=== PATIENT | female | born 1990 | race Caucasian/White ===

== ENCOUNTER 2019-03-25 15:48 | Inpatient (IN) | payer OTHER ==
[2019-03-25 16:27] LABS: Hemoglobin 12.4 g/dL (12.0-16.0); Mean Corpuscular HGB CONC 33.6 g/dL (32.0-36.0); Mean Corpuscular Volume 92.3 fL (78.0-98.0); Mean Platelet Volume 6.9 fL (7.4-10.4); Platelet Count 165 thou/uL (130-400); RBC Distribution Width 12.4 % (11.5-14.5); Red Blood Cell (RBC) Count 3.99 mill/uL (4.20-5.40); White Blood Cell (WBC) Count 12.3 thou/uL (4.8-10.8)
[2019-03-25 16:45] LABS: Bilirubin Negative (Negative); Blood, Urine Moderate (Negative); Clarity CLOUDY (Clear); Glucose, Urine (Dipstick) Negative (Negative); Leukocyte Moderate (Negative); Nitrite Negative (Negative); Protein, Urine (Dipstick) Negative (Neg-Trace); Specific Gravity, Urine 1.019 (1.002-1.036); Urobilinogen 0.2 mg/dL (0.2-1.0)
[2019-03-25 16:51] LABS: Bacteria/HPF Rare-Few HPF (None Seen); Hyaline Casts/LPF 0-3 HYALINE CAST LPF (0-3 Hyaline); Pathc Cast-AUWi Flag 0.54 (0-2.49)
[2019-03-25 16:54] LABS: ALT (SGPT) 15 U/L (8-55); AST (SGOT) 21 U/L (5-34); Albumin 3.8 g/dL (3.5-5.0); Alkaline Phosphatase 79 U/L (40-150); Anion Gap 15 mmol/L (10-20); BUN (Urea Nitrogen) 10 mg/dL (7.0-18.7); Bilirubin, Total 0.3 mg/dL (0.2-1.2); Calc. Creatinine Clearance 0 mL/min (70-130); Carbon Dioxide 20 mmol/L (22-29); Chloride 107 mmol/L (98-107); Estimated GFR-MDRD Greater than 90; Globulin 2.4 g/dL (2.4-3.5); Glucose 89 mg/dL (70-105); Potassium 3.9 mmol/L (3.5-5.1); Protein, Total 6.2 g/dL (6.0-8.3); Sodium 138 mmol/L (136-145)
[2019-03-25 16:55] LABS: Band 20 % (5-11); Eosinophils 1 % (0-10); Lymphocytes 14 % (21-51); MDiff Complete? YES; Monocytes 4 % (0-10); Neutrophil 61 % (42-75); Platelet Morphology Comment Appears Adequate; Polychromasia SLIGHT = 2-3 cells (100X) (0-2/hpf)
[2019-03-25] MEDS ORDERED: Morphine 4 MG/ML VIAL ONE (17:07)
--- NOTE | 2019-03-25 17:23 | CT ---
CT ABDOMEN AND PELVIS WITH CONTRAST: 03/25/19 HISTORY: Pain. Lung bases are clear. No pericardial effusion. The spleen is mildly enlarged. The liver, gallbladder and pancreas are unremarkable. No hydronephrosis. The aortic contour is nonaneurysmal. No retroperitoneal adenopathy. 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 Multiple cysts left ovary. No acute osseous abnormality. IMPRESSION: 1. 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 This may reflect endometritis and retained products of conception given the history. 2. Normal appendix. 3. Mild splenomegaly. POS: HOME
[2019-03-25] MEDS ORDERED: Clindamycin/D5W 900 mg/50 ml Premix Bag ONE ×2 (17:36→17:37)
[2019-03-25] MEDS ORDERED: Gentamicin Sulfate 360 MG in Sodium Chloride 0.9% 100 ML IVPB SCH (18:00)
[2019-03-25] MEDS ORDERED: Ketorolac Tromethamine 30 MG/ML VIAL ONE (18:41)
--- NOTE | 2019-03-25 20:14 | ULT ---
Ultrasound pelvis Doppler duplex: 03/25/2019 at 7:41 PM HISTORY: 28-year-old female status post spontaneous . Rule out retained products of conception. TECHNIQUE: Transabdominal transducer used to evaluate intrapelvic contents with grayscale, color-flow, and spect ral analysis. Endovaginal transducer was not used. FINDINGS: Uterus: 11.5 x 5.5 x 5.5 cm. Within the uterine fundus, the endometrial cavity is mildly expanded and filled with material of mixe d echogenicity. Some of this is hyperechoic and shadows, corresponding to the small air bubbles demonstrated on the recent CT. Some of the material is fluid, perhaps a small amount of blood. There is hyperemia in the uterine myometrium around this. It is uncertain whether there is blood flow in some of the material within the endometrial cavity. If so, this would be consistent with retained pro ducts of conception. There is a 3.5 x 2.5 x 3 cm left ovarian cyst superficially located near the left inguinal canal. Right ovary is 3.7 x 2.1 x 3.2 cm. No free fluid in the cul-de-sac. IMPRESSION: Cannot rule out retained products of conception.
[2019-03-25] MEDS ORDERED: Ondansetron ODT 4 MG TAB PO PRN (21:31)
[2019-03-25] MEDS ORDERED: Ondansetron PF 4 MG/2 ML Vial IVP PRN (21:31)
[2019-03-25] MEDS ORDERED: Fluconazole 100 MG TAB PO SCH (22:00)
[2019-03-25] MEDS: metroNIDAZOLE 500 MG in Premix Bag 1 BAG IVPB SCH (22:38)
[2019-03-25] MEDS: Acetaminophen 325 MG TAB PO PRN (22:47)
[2019-03-25] MEDS ORDERED: Zolpidem Tartrate 5 MG TAB PO PRN (23:00)
--- NOTE | 2019-03-25 23:25 | HP ---
HISTORY OF PRESENT ILLNESS: The patient is a 28-year-old G4, P1 female who was recently diagnosed with a missed AB a couple of weeks ago and over the course last couple of weeks has been treated with medical management and received one dose of 600 mcg of Cytotec followed by heavy bleeding and pain, presented to the ER and was reported to have an incomplete AB and took another portion of her Cytotec at home with subsequent diminishing bleeding. The patient has presented today to the emergency room with once again having heavy vaginal bleeding. She reports that she had some subjective fevers at home, but when she checked it, did not have a fever by thermometer. She reports that she has been having abdominal crampy pain that began this morning and reports that a co-worker at work noticed that she felt like she was "on fire" by touch. The patient has had some vomiting and lightheadedness. She has had some diarrhea today and yesterday. The patient has been treated by primary OB, Dr. Krishna. Her workup downstairs in the emergency room revealed by CT a didelphys uterus with abnormal collection of gas, enhancing material within the left endometrial cavity. Pelvic ultrasound confirms these findings. The patient was placed on gentamicin and clindamycin and brought up to the floor for treatment. Upon my evaluation, the patient reports that her bleeding and pain had slowed down significantly. She denies any current headache, chest pain, or shortness of breath. She has had really no appetite today with some nausea and vomiting previous and diarrhea. Denies constipation. Denies any skin rashes. The patient reports that today she woke up with a lot of lower extremity body aches in her hips and legs. She denies any urinary urgency or frequency. PAST MEDICAL HISTORY: Significant for bipolar disorder. PAST SURGICAL HISTORY: She has had 1 prior . She has also had a diagnostic laparoscopy. SOCIAL HISTORY: The patient smokes and smoking about a half pack per day. She also drinks socially. Denies any drug use. ALLERGIES: INCLUDE LATEX AND PENICILLIN. MEDICATIONS: The patient has received a dose of gentamicin 5 mg/kg, Cleocin 900 mg, 4 mg of morphine, 1 L of saline downstairs in the emergency room. PHYSICAL EXAMINATION: VITAL SIGNS: Blood pressure 107/65, heart rate of 74, respiratory rate 16, temperature 98.9, and saturating 98% on room air. GENERAL: The patient is in no acute distress. She is tearful and very emotional and soft-spoken. She is alert, oriented, cooperative, and pleasant to interact with. HEENT: Head is normocephalic, atraumatic. LUNGS: Clear to auscultation bilaterally. HEART: Regular rate and rhythm. ABDOMEN: Soft with light palpation. EXTREMITIES: Nontender, nonedematous. PELVIC: ER physician performed a pelvic exam demonstrating suprapubic tenderness of moderate intensity. The patient reports pelvic exam being painful enough to cause her to cry. Physician reports some dark bloody discharge. LABORATORY FINDINGS: White count of 12.3, hemoglobin 12.4, hematocrit 36.8, platelets 165,000 with 20% bands. Sodium of 138, potassium of 3.9, BUN of 10, creatinine 0.69, lactic acid of 1.9, AST of 21, ALT of 15. Urine with moderate blood, no nitrites, moderate leukocyte esterase, 7-10 white blood cells, 4-6 squamous cells, rare bacteria. ASSESSMENT AND PLAN: The patient is a 28-year-old female with an incomplete showing signs of infection within the uterus by CT and clinical symptoms. The patient is currently on gentamicin and clindamycin. Plan at this time is for a D and C in the morning after the patient has been on antibiotics for about 12 hours. The patient has been counseled to the risks and benefits of a suction D and C, including the benefit of higher success rate of recovery from this infection and quick recovery with the risks being perforation of the uterus, scarring, damage to bowel or bladder, bleeding resulting in need for blood transfusion and possible abdominal surgery. The patient has expressed understanding and desires to proceed. The patient has been placed on the surgery for tomorrow morning. Dr. Maldonado was the oncoming physician who will be performing the surgery. Job ID: [id number] [facility]
[2019-03-26] MEDS: Sodium Chloride 0.9% 1,000 ML IV SCH ×3 (00:20→14:31)
[2019-03-26] MEDS: Acetaminophen 325 MG TAB PO PRN ×2 (04:58→12:35)
[2019-03-26] MEDS: metroNIDAZOLE 500 MG in Premix Bag 1 BAG IVPB SCH ×3 (06:26→21:20)
--- NOTE | 2019-03-26 07:55 | PRG ---
DATE OF SERVICE: 03/26/2019 SUBJECTIVE: The patient is a 28-year-old female, who was admitted for incomplete AB with infection and retained products, placed on clindamycin and gentamicin, and subsequently transferred to [facility]. Plans were overnight to cool down some with some antibiotics with plans for D and C this morning. The patient reports that her abdominal pain has improved some and has not had a lot of bleeding. OBJECTIVE: VITAL SIGNS: Blood pressure 105/72, pulse of 80, respiratory rate of 16. She did have a temperature of 100.9 this morning at 04:45. GENERAL: She appears to be in no acute distress. She is woken up from sleeping. She is alert and oriented. ABDOMEN: A little tender, but as I said improved from admission. ASSESSMENT AND PLAN: The patient is a 28-year-old female, n.p.o., and presents for a suction dilation and curettage scheduled this morning, time to be announced. The patient will continue her n.p.o. status and is awaiting a call down for the dilation and curettage. Again, the retained products of conception are in the left uterus. Job ID: [id number]
--- NOTE | 2019-03-26 08:25 | PDOC.EVN ---
Event Note - Event Note Event Note: Underlay Stitcher note: Didelphis Uterus...products in left horn Patient s/p gent and cleocin in ER and now levaquin and flagyl... Last temp 100.9 Posted for D&C this AM For D&C this AM for Retained POC We will check kidney status from CT scan
[2019-03-26] MEDS ORDERED: Promethazine HCl 25 MG/ML VIAL SLOW IVP PRN (09:01)
[2019-03-26] MEDS ORDERED: HYDROmorphone 2 MG/ML VIAL SLOW IVP PRN (09:01)
[2019-03-26] MEDS ORDERED: Promethazine HCl 25 MG/ML VIAL IM PRN (09:01)
[2019-03-26] MEDS ORDERED: PACU-Morphine 4MG/ML VIAL SLOW IVP PRN (09:01)
[2019-03-26] MEDS ORDERED: Ondansetron HCl/PF 4 MG/2 ML Vial IVP PRN (09:01)
[2019-03-26] MEDS ORDERED: HYDROmorphone 0.5 MG/0.5 ML SYRINGE ONE (09:03)
[2019-03-26] MEDS ORDERED: Promethazine HCl 25 MG/ML VIAL ONE (09:03)
[2019-03-26] MEDS ORDERED: Midazolam HCl 2 mg/2 ml Vial ONE (09:03)
--- NOTE | 2019-03-26 09:42 | PDOC.EVN ---
Event Note - Event Note Event Note: Preop note dictated In OR 7 Sono tech pending Surgeon will be Sofía higgins under my supervision and sono guidance HCT 36 Left RPOC noted We are in OR also
--- NOTE | 2019-03-26 10:05 | PDOC.EVN ---
Event Note - Event Note Event Note: Intraop finding as speculum inserted by Sofía Mayers ( I am not scrubbed in at this moment): ONE cervix seen....despite moving to sides with tenac...second cervix not seen...suspect ONE cervix. Sono tech at bedside
[2019-03-26] MEDS ORDERED: Acetaminophen 325 MG/10.15 ML UDCUP PO PRN (10:22)
--- NOTE | 2019-03-26 10:26 | PRG ---
DATE OF SERVICE: 03/26/2019 PREOP NOTE TIME: Roughly 09:29. LOCATION: [facility]. In brief, this is a patient who was admitted by Dr. Mitchell, my partner in the last shift, for a septic AB. The patient has a history of 1 prior and 2 other miscarriages and this is the third. This miscarriage is complicated by retained products of conception/incomplete . She was noted to be febrile and was given antibiotics in the ER prior to my arrival and is currently on antibiotics. She is on Levaquin and Flagyl. She has a penicillin allergy. I evaluated the patient before surgery, in [place] bed 3. Her history was reviewed. We reviewed her uterine didelphys and it is likely link to recurrent miscarriage. The patient's questions were answered. She does have a history of a prior that she believes was also in the left uterus. This retained products of conception is also in the left uterus. I discussed with her that we will do this under ultrasound guidance. I have called the air launch weapons technician in the hospital, who was aware and will try to meet us in the OR for transabdominal ultrasound guidance. I have also discussed the case with anesthesia and the plan of care was confirmed. Her other allergy is to latex. PLAN: 1. Retained products of conception/septic AB. 2. Continue IV antibiotics. 3. Suction D and C under transabdominal guidance. 4. Continue IV antibiotics postop until afebrile for 24 hours and then home with oral antibiotics to complete a 7-day course. 5. On physical exam, we did note that the patient has bilateral upper extremities (forearms) with prior cutting injuries. These are well healed. They do not appear active. I did acknowledge these with the patient and asked her if there was any further "cutting behavior" still occurring. She denied. I asked her if she required any other psychosocial consultation and she denied. Job ID: [id number]
[2019-03-26] MEDS ORDERED: Azithromycin 1,000 MG in Sodium Chloride 0.9% 500 ML IVPB SCH (10:45)
[2019-03-26] MEDS ORDERED: Fentanyl 100 MCG/2 ML VIAL ONE (10:52)
--- NOTE | 2019-03-26 10:58 | OP ---
DATE OF PROCEDURE: 03/26/2019 LOCATION: Main OR in bed #7. TIME OF PROCEDURE: Roughly 1000 hours to 1018 hours. INDICATION: This is a patient with suspected septic AB with a history of didelphys uterus, who is currently on antibiotics. She is scheduled for D and C of the possible retained products of conception. PREOPERATIVE DIAGNOSES: 1. Suspected septic AB. 2. History of didelphys uterus. 3. Bipolar disorder. 4. Recent fever. POSTOPERATIVE DIAGNOSES: 1. Suspected septic AB. 2. History of didelphys uterus. 3. Bipolar disorder. 4. Recent fever. 5. Status post transabdominal sono-guided D and C. PROCEDURES PERFORMED: 1. Sono-guided D and C (Heather with ultrasound, present for transabdominal ultrasound during the procedure). 2. Exam under anesthesia SURGEON: Karime Mayers DO. ATTENDING/FACULTY: Eder Maldonado MD. CHANNEL REBUILDER: Daryl Williamson (clinical medical student 3rd year). ANESTHESIA: General. ANTIBIOTICS: None in the OR (we will give Zithromax in recovery). IV FLUIDS: About 800 mL crystalloid. URINE OUTPUT: About 20 to 30 mL by in and out catheterization. FINDINGS: 1. There is no vulvovaginal lesion. 2. No active bleeding. 3. There is only one cervix that is noted. Despite moving the cervix to the right and to the left and up and down, there was no evidence of a second/gun barrel cervix. Despite the history of a didelphys, we can only appreciate one cervix. 4. No evidence of perforation during transabdominal suction curettage. 5. No supracervical bleeding noted. 6. Hemostasis postprocedure. ESTIMATED BLOOD LOSS: About 10 mL at max. COMPLICATIONS: None. COUNTS: Correct. PATHOLOGY: 1. Tissue was sent to pathology as uterine curettings. 2. No vaginal packs placed. DISPOSITION: To recovery room in good and stable condition. TECHNIQUE: After proper informed consent was explained to the patient in day surgery, she was taken to the main OR bed #7, where she was successfully placed under general endotracheal anesthesia. She was placed in dorsal lithotomy position in Swapnil stirrups and all pressure points were adequately padded. Deep hyperflexion and external rotation were avoided in the positioning process. The patient's vulva, vagina, and lower pelvis were all prepped and draped in the usual sterile fashion. An open-sided speculum was placed into the vagina for visualization of the cervix. The findings were as above. Gentle sounding of the uterine cavity was performed under transabdominal ultrasound. Uterus was about 10 cm in depth. We then performed suction curettage using a #7 curved plastic curette under low vacuum performed under direct visual guidance. No evidence of perforation was noted. At the end of the procedure, which was in brief, an endo and echogenic endometrial stripe were noted on ultrasound. At the end of the procedure, no supracervical bleeding was noted. As there was no complications seen, all instruments were removed from the patient's vault/vagina and she was transported to recovery room , where we will give 1 g of Zithromax for chlamydia coverage as empiric prophylaxis. Job ID: [id number] [facility]
[2019-03-26] MEDS ORDERED: Acetaminophen/Codeine 30-300mg Tablet PO PRN (12:38)
[2019-03-26] MEDS ORDERED: Acetaminophen/Codeine 30-300mg Tablet PO SCH (12:45)
--- NOTE | 2019-03-26 19:19 | PDOC.EVN ---
Event Note - Event Note Event Note: Postop Check Patient seen at bedside at 1900 S. Doing well, feels better O. Afebrile since D&C: on levaquin and flagyl Tissue sent to path A/P: resolving septic retained POC after inc ab..s/p D&C Prob [facility] tomorrow to complete levaquin (5 days more) and flagyl (7 days more) at home. Follow temps today
--- NOTE | 2019-03-26 19:47 | ULT ---
LIMITED PELVIS ULTRASOUND: TECHNIQUE: Exam was performed transabdominally, while the obstetric physician performed a D&C. The bladder is n ot distended. There is a somewhat complex solid and cystic multiloculated cyst, 2.4 x 3.4 cm, noted anterior to the bladder and superior to the uterine fundus region, which probably represents the left ovary. IMPRESSION: 1. Limited transabdominal pelvic ultrasound, performed during dilation and curettage. 2. A 2.4 x 3.4 cm in diameter, somewhat multiseptated-appearing mass, superior to the bladder and somewhat anterior to the uterine fundus, probably related to the left ovary. 3. No significant retained products seen on this somewhat limited examination. POS: [facility]
[2019-03-27] MEDS: Acetaminophen 325 MG TAB PO PRN (00:22)
[2019-03-27] MEDS: Sodium Chloride 0.9% 1,000 ML IV SCH (02:16)
[2019-03-27] MEDS: metroNIDAZOLE 500 MG in Premix Bag 1 BAG IVPB SCH (06:13)
--- NOTE | 2019-03-27 06:49 | PDOC.EVN ---
Event Note - Event Note Event Note: DISCHARGE NOTE Admit: 03/25/19 Discharge: 03/27/19 Diagnosis: Septic AB Suspected uterine abnormality Procedure: Sono guided D&C on 03/26/10 Course: This patient was admitted by Dr Mitchell for suspected septic AB with retained POC after medical management of her spontaneous miscarriage by use of cytotec. She was given IV antibiotics and scheduled for D&C on 03/26/10. Dr Maldonado was faculty for the sono guided procedure which was uncomplicated. She remained on IV Levaquin and flagyl postop, and was afebrile since the procedure. She was discharged home to complete her antibiotic s on 03/27/19. On the day of discharge, she was doing well and was able to tolerate po. The tissue sent to pathology was still pending. Discharge RX included diflucan x 1. She is to follow up with Dr tyson in 2 weeks.
[2019-03-27 11:31] VITALS: BP 138/74; TEMP 98
== END 2019-03-27 11:47 | disposition home or self-care (01) | DRG 770 ==
LOC: ERS 15:48 → 3SW 18:44 → 3SE 20:22
PROVIDERS: ADMIT Obstetrics & Gynecology; ATTEND Obstetrics & Gynecology
PROC: 10D17ZZ Extraction of Products of Conception, Retained, Via Natural or Artificial Opening (ICD-10-PCS; principal; 2019-03-26)
DX: O07.37 Sepsis following failed attempted termination of pregnancy (principal); F31.9 Bipolar disorder, unspecified; F17.210 Nicotine dependence, cigarettes, uncomplicated; Z88.0 Allergy status to penicillin; Z91.040 Latex allergy status; Q51.20 Other doubling of uterus, unspecified
CPT/HCPCS: 74177; 76856; 76857; 80053; 81003; 81015; 83605; 85025; 86850; 86900; 86901; 87040; 87086; 87480; 87491; 87510; 87591; 87660; 88305; 96361; 96365; 96367; 96375; 99406; J0456; J1170; J1580; J1885; J1956; J2250; J2270; J2550; J3010; J3490; J7050; Q0162

== ENCOUNTER 2020-04-26 19:50 | Day surgery (SDC) | payer OTHER ==
[2020-04-26 20:31] VITALS: BMI 29.1
[2020-04-26] MEDS ORDERED: hydrALAZINE 20 MG/ML VIAL SLOW IVP PRN (21:08)
--- NOTE | 2020-04-26 21:12 | PDOC.LDHP ---
Labor and Delivery H&P Chief complaint: contractions, loss of fluid HPI: 29 y/o @ 35.2 wks with a pmhx of didephis uterus, in Left horn of uterus, presents to L&D with ctx that started at 12 today and slow leaking of fluids per vagina since this morning upon awakening. Enough to dampen her underwear. PT states that this week she has had an increase in soft stool X3 a day. non- watery or bloody. Nausea starting today without vomiting. denies vag bleeding. c/o approx 1 week of mucus like vag discharge with white color and thick consistency. c/o lower abd cramping sensation and ctx's that have gradually increased in intensity and timing. starting at 10 minutes apart and up to 2 minutes apart by time of arrival. Pt can breath and talk through contractions. There is also a constant vaginal discomfort described. Denies any recent sexual intercourse. reports good movements. Deneis SALVADOR, CP, LE swelling or SOB. Pt is scheduled for a repeat on 05/22/20, but would like to TOLAC. PCP Dr. Krishna. Current gestational age (weeks): 35 (2 days ) Due date: 05/29/20 Grav: 6 Para: 1 (1,0,4,1) OB History Details: Preg #1: spontaneous approx 4-5 wks Preg #2: due to breech presentation @ 41 wks, no complications Preg #3-5: spontaneous abortions. First 2 were @ 4-6 wks, and 3rd was last summer @ 8-12 weeks approx. Preg #6: increased GTT, and then normal 3 Hr GTT. Current complications: other (didelphys uterus) Abnormal US findings: Yes (didelphys uterus, fetus in Left horn. ) Past Medical History: didelphys uterus MDD off medications Current medications: pre- vitamins, iron Previous surgical history: low tranverse CS, other (D&C : 2019 lap sx on cervis 2008) Allergies/Adverse Reactions: Allergies Allergy/AdvReac Type Severity Reaction Status Date / Time Latex, Natural Rubber Allergy Verified 04/27/20 00:10 Penicillins Allergy Verified 04/27/20 00:10 Social history: tobacco use (1-2 cigarettes a day for the past approx month. Quit smoking at beginning of ), other (denies etoh or drug use.) - Physical Exam Vital signs reviewed and normal: yes General: NAD, resting, breathing through contractions Heart: RRR Lungs: CTAB Abdomen: gravid Extremeties: no edema FHT: category 1 (fht's 140 baseline with mod variability and reactive. Ctx Q2- 4 minutes upon arrival.), variability present [place] contractions every: 2-4 min - OB Labs Blood type: B RH: positive Antibody Screen: negative HEPSAg: negative Rubella: immune - Assessment 29 y/o F L&D triage for ctx and leaking fluid per vagina 1. sIUD in L horn didelphys uterus. - fht and toco monitoring. - amnisure ordred - Sterile spec exam: no pooling of vaginal fluids on valsalva, white thick discharge adhered to vag rose. - VP3 performed. 2. Pre-term contractions - bolus 1 L LR - TOCO monitoring - suspect this is 2/2 yeast vaginitis - if amnisure neg will treat with topical clotrimazole nightly for 7 days. - pt states pain is not severe enough to need pain medications at this time. 3. Rule out PPROM - amnisure ordered - sterile spec exam not suggestive of ROM. no pooling of fluids with valsalva. Dispo: stable, ctx likely 2/[address] Krishna. - Plan Plan: observation in L&D Addendum - Attending - Attending Attestation Date/Time: 04/29/20 [id number] I personally evaluated the patient and discussed the management with Dr. Dill. I agree with the History, Examination, Assessment and Plan documented above with any addition or exceptions noted below.
[2020-04-26] MEDS ORDERED: Lactated Ringer's 1,000 ML IV SCH (21:45)
[2020-04-26 21:48] LABS: Amnisure Test No Membranes Rupture (No Rupture)
[2020-04-26 21:49] LABS: Amnisure Internal Control QC ACCEPTABLE (ACCEPTABLE)
--- NOTE | 2020-04-26 23:47 | PDOC.BPN ---
- Brief Progress Note vp3 + for alejandra will send home with 7 nights clotrimazole. f/u with PCP [address] Krishna. ctx have slowed post IV fluids. care plan discussed with Dr. Mitchell, who is in agreement with above stated plan.
== END 2020-04-27 00:20 | disposition home health service (06) ==
LOC: L&D/OP 19:50
PROVIDERS: ATTEND Obstetrics & Gynecology
DX: O47.03 False labor before 37 completed weeks of gestation, third trimester (principal); O99.89 Other specified diseases and conditions complicating pregnancy, childbirth and the puerperium; N89.8 Other specified noninflammatory disorders of vagina; O98.813 Other maternal infectious and parasitic diseases complicating pregnancy, third trimester; B37.3 Candidiasis of vulva and vagina; O34.03 Maternal care for unspecified congenital malformation of uterus, third trimester; Q51.20 Other doubling of uterus, unspecified; O99.343 Other mental disorders complicating pregnancy, third trimester; F32.9 Major depressive disorder, single episode, unspecified; O34.211 Maternal care for low transverse scar from previous cesarean delivery; Z3A.35 35 weeks gestation of pregnancy; Z87.891 Personal history of nicotine dependence; Z88.0 Allergy status to penicillin; Z91.040 Latex allergy status
CPT/HCPCS: 84112; 87480; 87510; 87660

== ENCOUNTER 2020-05-17 07:21 | Outpatient (CLI) | payer OTHER ==
[2020-05-17 17:21] LABS: SARS-CoV-2 MS2 Positive; SARS-CoV-2 N Gene Negative; SARS-CoV-2 S Gene Negative; SARS-CoV-2 by NAA Not Detected (NotDetected); SARS-CoV-2 orf1ab Negative
== END 2020-05-17 07:22 | disposition home or self-care (01) ==
LOC: LABSCS 07:21
PROVIDERS: ATTEND Obstetrics & Gynecology
DX: Z01.812 Encounter for preprocedural laboratory examination (principal); Z11.59 Encounter for screening for other viral diseases
CPT/HCPCS: 87635; U0003

== ENCOUNTER 2020-05-22 05:43 | Inpatient (IN) | payer OTHER ==
[2020-05-22] MEDS ORDERED: Lactated Ringer's 1,000 ML IV SCH ×2 (05:58)
[2020-05-22] MEDS ORDERED: Gentamicin 80 MG/2 ML VIAL IVPB SCH (05:58)
[2020-05-22] MEDS ORDERED: Ondansetron PF 4 MG/2 ML Vial IVP PRN ×3 (05:58→10:32)
[2020-05-22] MEDS ORDERED: Clindamycin/D5W 900 MG in Premix Bag 1 BAG IVPB SCH (05:58)
[2020-05-22] MEDS ORDERED: Promethazine HCl 25 MG/ML VIAL IM PRN ×3 (05:58→10:32)
[2020-05-22] MEDS ORDERED: Azithromycin 500 MG in Sodium Chloride 0.9% 250 ML 250 ML IVPB SCH (05:58)
[2020-05-22] MEDS ORDERED: Bicitra 30 ML UDCUP PO SCH (05:58)
[2020-05-22] MEDS ORDERED: hydrALAZINE 20 MG/ML VIAL SLOW IVP PRN ×2 (05:58→10:32)
[2020-05-22 06:06] VITALS: BMI 29.9
[2020-05-22] MEDS ORDERED: Gentamicin Sulfate 120 MG in Premix Bag 1 BAG IVPB SCH (06:30)
[2020-05-22 06:33] LABS: Hemoglobin 13.1 g/dL (12.0-16.0); Mean Corpuscular HGB CONC 33.1 g/dL (32.0-36.0); Mean Corpuscular Hemoglobin 30.5 pg (27.0-31.0); Mean Corpuscular Volume 92.1 fL (78.0-98.0); Mean Platelet Volume 8.5 fL (7.4-10.4); Platelet Count 119 thou/uL (130-400); RBC Distribution Width 12.3 % (11.5-14.5); Red Blood Cell (RBC) Count 4.28 mill/uL (4.20-5.40); White Blood Cell (WBC) Count 12.1 thou/uL (4.8-10.8)
[2020-05-22 07:09] LABS: Syphilis Antibody Nonreactive (Nonreactive); Syphilis Antibody Index 0.02 S/CO (<1.00 Non-Reactive)
[2020-05-22 07:10] LABS: HBSAg Index 0.14 S/CO (0-0.99); Hep B Surf Ag Non-Reactive S/CO (NonReactive)
[2020-05-22] MEDS ORDERED: Ondansetron PF 4 MG/2 ML Vial ONE (07:23)
[2020-05-22] MEDS ORDERED: EPHEDRINE 25 MG/5 ML SYRINGE ONE (07:23)
[2020-05-22] MEDS ORDERED: MORPHINE 5 MG/10 ML PF VIAL ONE (07:23)
[2020-05-22] MEDS ORDERED: PHENYLEPHRINE-NS 100 MCG/ML 10 ML SYRINGE ONE (07:23)
[2020-05-22] MEDS ORDERED: Oxytocin 10 UNITS/ML VIAL ONE ×2 (07:23→07:25)
[2020-05-22] MEDS ORDERED: Fentanyl 100 MCG/2 ML VIAL ONE (08:02)
[2020-05-22] MEDS ORDERED: Ketorolac Tromethamine 30 MG/ML VIAL ONE (08:04)
[2020-05-22] MEDS ORDERED: Metoclopramide HCl 10 MG/2 ML VIAL ONE (08:12)
[2020-05-22] MEDS ORDERED: L&D-Morphine 4 MG/ML VIAL SLOW IVP PRN (08:31)
[2020-05-22] MEDS ORDERED: HYDROmorphone 2 MG/ML VIAL SLOW IVP PRN (08:31)
[2020-05-22] MEDS ORDERED: Naloxone HCl 0.4 mg/ml Vial IVP PRN ×2 (08:31)
[2020-05-22] MEDS ORDERED: Naloxone HCl 0.4 mg/ml Vial IV PRN (08:31)
[2020-05-22] MEDS ORDERED: Ondansetron HCl/PF 4 MG/2 ML Vial IVP PRN (08:31)
[2020-05-22] MEDS ORDERED: Meperidine HCl/PF 25 MG/ML VIAL SLOW IVP PRN (08:31)
[2020-05-22] MEDS ORDERED: Promethazine HCl 25 MG SUPP PR PRN (08:31)
[2020-05-22 08:36] LABS: Actual Bicarbonate (HCO3a) 25.1 mEq/L (22-28); Analyzer IN Cardio OR; Base Excess (BEa) -3.8 mEq/L (-2.0 to +3.0)
[2020-05-22 08:37] LABS: Actual Bicarbonate (HCO3v) 27 mEq/L (22-28); Analyzer IN Cardio OR; Base Excess -1.9 mEq/L (-2.0 to +3.0); pH (Cord, venous) 7.27 (7.32-7.43)
[2020-05-22] MEDS ORDERED: Ketorolac Tromethamine 30 MG/ML VIAL IVP SCH (08:45)
[2020-05-22] MEDS ORDERED: Communication Order-Pharmacy FS SCH (08:45)
--- NOTE | 2020-05-22 10:01 | OP ---
DATE OF PROCEDURE: 05/22/2020 PREOPERATIVE DIAGNOSES: 39 weeks' gestation, uterus didelphys with breech presentation, fetus prior section in left uterus. POSTOPERATIVE DIAGNOSES: 39 weeks' gestation, uterus didelphys with breech presentation, fetus prior section in left uterus. PROCEDURE PERFORMED: Repeat low-transverse section without extension. MUSIC RESEARCHER: Nora Montero PA-C ANESTHESIA: Subarachnoid block. Nimo Ortiz MD. DRAINS: Haq to gravity. DVT PROPHYLAXIS: SCDs. MEDICATIONS: Gentamicin, clindamycin, and Zithromax preoperatively. COMPLICATIONS: None. OPERATIVE FINDINGS: 1. Vigorous female , weight and Apgars pending and left uterus, incomplete breech presentation with clear fluid. Cord gases pending. 2. in known left uterine didelphys with expected appearance of both right and left uterus and ovaries. 3. Hemostasis, clear urine. COUNTS: Correct at the end of the procedure. DISPOSITION: Recovery room in good condition. DESCRIPTION OF PROCEDURE: After obtaining appropriate informed consent, the patient was taken to the operating room, where subarachnoid block achieved without difficulty. The patient was prepped and draped in the usual manner for section. Previous Pfannenstiel incision identified, incised sharply and sent it down to the fascia, was incised sharply superiorly and laterally with curved Collins scissors. Rectus was dissected off sharply superiorly and inferiorly, divided in the midline. Peritoneum entered bluntly to avoid trauma to the underlying viscera. José Luis O retractor was placed inside. Anticipated anatomic deviation was encountered with very thin lower uterine segment, breech presentation and slight deviation towards the left secondary to the uterine didelphys. Vesicouterine peritoneum was incised sharply and dissected off the lower uterine segment. Hysterotomy was made with clear fluid encountered and extended superiorly and laterally with finger fractionation. was noted to be in complete breech. Left foot was grasped and delivered and the right leg delivered spontaneously. Usual corkscrew maneuver was carried out to deliver down to the head. Flexion was maintained and the infant delivered with ease onto the abdomen, suctioned cord clamped and cut, handed off to the team in attendance. Usual cord blood and cord gas segment obtained. Placenta was removed manually and not sent for pathology. The uterus was exteriorized. The operative findings were noted. Hysterotomy was noted to be without extension and was closed using a running locking #1 Monocryl x1. Small areas of [id number] in the middle of the hysterotomy were reapproximated to achieve hemostasis. Good hemostasis was noted after closure. Gutters were irrigated out bilaterally and reinspection of the hysterotomy revealed it to be dry. The José Luis O retractor was removed. Counts were correct. Rectus was inspected and noted to be dry. Fascia was reapproximated using 0 PDS suture. Subcutaneous tissue irrigated, rendered hemostatic with Bovie cautery, reapproximated using a 3-0 plain gut and skin reapproximated using 4-0 Monocryl and Dermabond. The patient was taken to recovery room in good condition. Job ID: [id number]
[2020-05-22] MEDS ORDERED: NS / Oxytocin 40 units/1000ml 1,000 ML IV SCH (10:32)
[2020-05-22] MEDS ORDERED: Meperidine HCl/PF 25 MG/ML VIAL IM PRN (10:32)
[2020-05-22] MEDS ORDERED: Acetaminophen 325 MG TAB PO PRN (10:32)
[2020-05-22] MEDS ORDERED: Lanolin Ointment 7 GM TUBE TOP PRN (10:32)
[2020-05-22] MEDS: Lactated Ringer's 1,000 ML IV SCH (11:11)
[2020-05-22] MEDS: Ketorolac Tromethamine 30 MG/ML VIAL IVP PRN ×2 (11:14→20:26)
[2020-05-22] MEDS: diphenhydrAMINE 50 MG/ML VIAL IVP PRN ×2 (11:15→16:07)
[2020-05-22] MEDS: diphenhydrAMINE 25 MG CAP PO PRN (20:26)
[2020-05-22] MEDS: Docusate Calcium (SURFAK) 240 MG CAP PO SCH (20:26)
[2020-05-22] MEDS ORDERED: HYDROcodone/Acetaminophen 5/325 mg Tablet PO PRN (21:00)
[2020-05-22] MEDS ORDERED: Zolpidem Tartrate 5 MG TAB PO PRN (21:00)
[2020-05-23] MEDS: Ketorolac Tromethamine 30 MG/ML VIAL IVP PRN (03:03)
[2020-05-23] MEDS: Lactated Ringer's 1,000 ML IV SCH ×4 (03:07→18:04)
[2020-05-23] MEDS: diphenhydrAMINE 25 MG CAP PO PRN (03:08)
[2020-05-23 06:18] LABS: Hemoglobin 11.1 g/dL (12.0-16.0); Mean Corpuscular HGB CONC 34.2 g/dL (32.0-36.0); Mean Corpuscular Hemoglobin 31.7 pg (27.0-31.0); Mean Corpuscular Volume 92.8 fL (78.0-98.0); Mean Platelet Volume 8.5 fL (7.4-10.4); Platelet Count 86 thou/uL (130-400); RBC Distribution Width 12.1 % (11.5-14.5); Red Blood Cell (RBC) Count 3.49 mill/uL (4.20-5.40); White Blood Cell (WBC) Count 10.2 thou/uL (4.8-10.8)
[2020-05-23] MEDS: Docusate Calcium (SURFAK) 240 MG CAP PO SCH ×2 (08:34→22:03)
[2020-05-23] MEDS: Prenatal Vitamin 1 TAB PO SCH (08:34)
[2020-05-23] MEDS: HYDROcodone/Acetaminophen 5/325 mg Tablet PO PRN ×3 (08:42→19:47)
[2020-05-23] MEDS: Simethicone Chewable 80 MG TAB PO PRN ×3 (08:42→22:06)
[2020-05-23] MEDS ORDERED: Adacel (T-DAP) 0.5 ML SYRINGE IM ONE (09:00)
[2020-05-23] MEDS: Ibuprofen 800 MG TAB PO SCH ×2 (13:55→22:03)
[2020-05-24] MEDS: Lactated Ringer's 1,000 ML IV SCH ×2 (00:39→06:56)
[2020-05-24] MEDS: Ibuprofen 800 MG TAB PO SCH (05:37)
[2020-05-24] MEDS: Prenatal Vitamin 1 TAB PO SCH (08:12)
[2020-05-24] MEDS: Docusate Calcium (SURFAK) 240 MG CAP PO SCH (08:12)
[2020-05-24 08:14] VITALS: BP 133/71; TEMP 98.7
[2020-05-24] MEDS: HYDROcodone/Acetaminophen 5/325 mg Tablet PO PRN (08:16)
== END 2020-05-24 11:30 | disposition home or self-care (01) | DRG 788 ==
LOC: L&D 05:43 → 3SE 10:15
PROVIDERS: ADMIT Obstetrics & Gynecology; ATTEND Obstetrics & Gynecology
PROC: 10D00Z1 Extraction of Products of Conception, Low, Open Approach (ICD-10-PCS; principal; 2020-05-22)
DX: O34.211 Maternal care for low transverse scar from previous cesarean delivery (principal); O34.03 Maternal care for unspecified congenital malformation of uterus, third trimester; O32.1XX0 Maternal care for breech presentation, not applicable or unspecified; Q51.20 Other doubling of uterus, unspecified; Z3A.39 39 weeks gestation of pregnancy; Z37.0 Single live birth
CPT/HCPCS: 36415; 51702; 82805; 85027; 86780; 86850; 86900; 86901; 87340; J1200; J1885; J2274; J2405; J2590; J2765; J3010; J3490; Q0163